=== PATIENT | male | born 1975 | race Caucasian/White ===

== ENCOUNTER 2019-04-17 21:03 | Inpatient (IN) | payer MEDICAID ==
[~2019-04-17] VITALS: Ht 165.1 cm; Wt 96.6 kg
[2019-04-17 21:07] VITALS: BP_SYST 108
[2019-04-17 21:57] LABS: BASOPHILS # (AUTO) 0.1 K/uL (0.0-0.2); BASOPHILS % (AUTO) 0.6 % (0.0-2.0); EOSINOPHILS # (AUTO) 0.4 K/uL (0.0-0.4); EOSINOPHILS % (AUTO) 2.9 % (0.0-4.0); HEMATOCRIT 31.7 % (36-54); HEMOGLOBIN 10.7 g/dL (14.0-18.0); LYMPHOCYTES # (AUTO) 1.8 K/uL (1.0-5.5); LYMPHOCYTES % (AUTO) 14.7 % (20.5-51.5); MEAN CORPUSCULAR HEMOGLOBIN 36 pg (27-31); MEAN CORPUSCULAR HGB CONC 34 % (32-36); MEAN CORPUSCULAR VOLUME 107 fL (79.0-98.0); MONOCYTES # (AUTO) 1.4 K/uL (0.0-1.0); MONOCYTES % (AUTO) 11.1 % (1.7-9.3); NEUTROPHILS # (AUTO) 8.8 K/uL (1.8-7.7); NEUTROPHILS % (AUTO) 70.7 % (40.0-70.0); PLATELET COUNT (AUTO) 146 K/uL (130-430); RED BLOOD CELL COUNT(AUTO) 2.97 MIL/uL (4.2-6.2); RED CELL DISTRIBUTION WIDTH 14.2 % (9.0-15.0); WHITE BLOOD COUNT (AUTO) 12.4 K/uL (4.8-10.8)
[2019-04-17 22:01] LABS: CALCIUM 7.7 mg/dL (8.4-11.0); CREATININE 1.04 mg/dL (0.55-1.30); POTASSIUM 4.6 mmol/L (3.5-5.1)
[2019-04-17 22:07] LABS: ALBUMIN 0.8 g/dL (3.4-4.8); TOTAL BILIRUBIN 7.1 mg/dL (0.0-1.0)
--- NOTE | 2019-04-17 22:45 | NUR ---
Placed in room 3 . Placed on mop man, blood pressure machine and pulse oximeter. To gown for exam. Side rails up.
--- NOTE | 2019-04-17 22:47 | NUR ---
Pt was brought in with 20 gauge to left AC placed en route to ED by EMT's.
--- NOTE | 2019-04-17 22:47 | NUR ---
Pt was brought in by BLS from home c/o shortness of breath for the past two days. O2 saturation is upon ED arrival is 98%. Pt appears to be jaundice. Per pt, he has hx of paracentesis and liver cirrhosis. Abdomen appears to be distended and firm to touch. No other injuries/complaints per patient or noted.
--- NOTE | 2019-04-17 23:22 | NUR ---
Alonzo chowdhury in ED - 04/17/19 at 2322 by [email or web address] JACKSON Cabrera at bedside examining patient.
--- NOTE | 2019-04-17 23:28 | NUR ---
ER Dr. Cabrera at bedside examining patient.
--- NOTE | 2019-04-18 00:18 | NUR ---
Patient went to CT in stable condition.
[2019-04-18] MEDS ORDERED: RIFA550T5 PO (01:15)
[2019-04-18] MEDS ORDERED: FURO-150 PO (01:15)
[2019-04-18] MEDS ORDERED: MAGN64TA7 PO (01:15)
[2019-04-18] MEDS ORDERED: POTA10TA15 PO (01:15)
[2019-04-18] MEDS ORDERED: PROP10TA10 PO (01:15)
[2019-04-18] MEDS ORDERED: SPIR100T PO (01:15)
[2019-04-18] MEDS ORDERED: LACT10SO6 PO (01:15)
[2019-04-18] MEDS ORDERED: IOHEXOL 350 mgI/mL, 150 ML INFUS..BTL IV ONE (01:24)
--- NOTE | 2019-04-18 01:48 | NUR ---
Pt returned from CT in stable condition.
[2019-04-18] MEDS ORDERED: KETOROLAC TROMETHAMINE 30 MG VIAL IVP ONE (02:00)
--- NOTE | 2019-04-18 02:04 | NUR ---
Patient will be admitted to care of Dr. Hernandez. Admitted to Med Surg unit. Will go to room 118 A. Belongings list completed. Summary report printed. Report will be given at bedside.
--- NOTE | 2019-04-18 02:05 | NUR ---
[facility] IV present no sign or symptom of infiltration.
--- NOTE | 2019-04-18 02:11 | NUR ---
ADMISSION NOTE Received patient from ER via elif, received report from RENE SMITH. Patient admitted with diagnosis of LIVER CIRRHOSIS. Patient oriented to hospital routine, call light, toileting and safety-patient verbalized understanding.
[2019-04-18 02:19] VITALS: BP_SYST 98
[2019-04-18 02:46] VITALS: BP_SYST 96
--- NOTE | 2019-04-18 04:00 | NUR ---
RESTING Patient is resting at this time. No s/s of acute distress. Safety and fall precautions are in place. Bed is locked and in the lowest position with bed alarm on. Call light with patient. Will continue to monitor.
--- NOTE | 2019-04-18 04:48 | NUR ---
CONSULT Called Dr. Schneider's exchange for morning consult Dr. Todd application development consultant [phone] Spoke to Mine
--- NOTE | 2019-04-18 06:46 | NUR ---
CLOSING NOTE All needs were met throughout the shift. Patient is stable with no s/s of acute distress. Denies any dizziness, pain or discomfort at this time. Safety measures maintained. Call light with patient. Will endorse care to oncoming day shift nurse.
[2019-04-18] MEDS ORDERED: PROPRANOLOL HCL 10 MG TABLET (INDERAL) PO SCH (07:00)
--- NOTE | 2019-04-18 07:35 | NUR ---
AM ROUNDS: BEDSIDE REPORT GIVEN BY NIGHT NURSE MELI. DENIES ANY PAIN. NO ACUTE DISTRESS. CALL LIGHT WITH IN REACH. BED LOCKED AT LOWEST POSITION. BED ALARM OFF PER PATIENT REQUEST.
[2019-04-18 08:15] LABS: ALANINE AMINOTRANSFERASE 30 U/L (12-78); ALBUMIN 0.7 g/dL (3.4-4.8); ASPARTATE AMINOTRANSFERASE 49 U/L (10-37); CHLORIDE 101 mmol/L (98-107); CREATININE 1.07 mg/dL (0.55-1.30); GLUCOSE 94 mg/dL (70-99); POTASSIUM 5.1 mmol/L (3.5-5.1); SODIUM SERUM 131 mmol/L (136-145); TOTAL BILIRUBIN 6.3 mg/dL (0.0-1.0); UREA NITROGEN, BLOOD 11 mg/dL (8-21)
[2019-04-18 08:17] LABS: ANION GAP < 3 (5-15); GFR AFRICAN AMERICAN 97 mL/min (>90)
[2019-04-18 08:38] VITALS: BP_SYST 91
[2019-04-18] MEDS: RIFAXIMIN 550 MG TABLET PO SCH ×2 (08:51→20:48)
[2019-04-18] MEDS: LACTULOSE 20 GM/30 ML UDC PO SCH ×3 (08:52→20:48)
[2019-04-18] MEDS: FUROSEMIDE 40 MG/4 ML VIAL IVP SCH (08:55)
[2019-04-18] MEDS: SPIRONOLACTONE 50 MG TABLET (ALDACTONE) PO SCH (09:00)
[2019-04-18] MEDS ORDERED: FUROSEMIDE 20 MG/2 ML VIAL IVP SCH (09:00)
[2019-04-18] MEDS ORDERED: FUROSEMIDE 20 MG TABLET PO SCH (09:00)
[2019-04-18 09:11] LABS: INR 1.9 (0.80-1.20); PROTHROMBIN TIME 18.9 SECS (9.5-12.5)
[2019-04-18] MEDS: MAGNESIUM CHLORIDE 64 MG TABLET.DR PO SCH (09:14)
--- NOTE | 2019-04-18 11:30 | NUR ---
RN ROUNDS: PATIENT STATED,NO APPETITE ,TOOK JUICE AND FRUIT CUP ONLY. STABLE.
--- NOTE | 2019-04-18 15:00 | NUR ---
PARACENTESIS: RADIOLOGIST CAME AND DID PARACENTESIS,OBTAINED 10CC OF YELLOW COLOR ,ASPIRATED FROM THE ABDOMEN.NO DISTRESS.
[2019-04-18 15:09] VITALS: BP_SYST 97
[2019-04-18] MEDS: cefTRIAXone 1 GM in D5W 50 ML IV SCH (16:09)
--- NOTE | 2019-04-18 17:39 | NUR ---
RN ROUNDS: AT THE BEDSIDE. NO DISTRESS.
--- NOTE | 2019-04-18 18:48 | NUR ---
END OF SHIT: AT THE BEDSIDE. NO ACUTE DISTRESS. CALL LIGHT WITH IN REACH. BED LOCKED AT LOWEST POSITION. CONDITION GUARDED.
--- NOTE | 2019-04-18 19:30 | NUR ---
Opening note Late entry d/t patient care. Patient is AOx4, no s/sx of distress, IV is SL to LAC. Bed is locked to lowest position, side rails up 2x, call light w/in reach.
[2019-04-18 20:00] VITALS: BP_SYST 111
[2019-04-18] MEDS: KETOROLAC TROMETHAMINE 15 MG VIAL IVP PRN (20:48)
--- NOTE | 2019-04-18 20:56 | NUR ---
Due medication / Pain medication Patient reporting pain to right abdomen/flank and medicated with Toradol as ordered. Due medications given and educated on side effects, he verbalized understanding. Will monitor.
[2019-04-18 22:24] LABS: APPEARANCE,SPUN,BODY FLUID CLEAR (CLEAR); BF APPEARANCE UNSPUN CLEAR (CLEAR); BODY FLUID COLOR YELLOW (LT YELLOW); BODY FLUID SOURCE/ TYPE ABDOMINAL; BODY FLUID TOTAL VOLUME 9 mL; MONOCYTES,BODY FLUID 98 %; NEUTROPHIL, BODY FLUID 2 %; RBC, BODY FLUID 220 /uL; SOURCE/TYPE ,BODY FLUID ABDOMINAL; WBC, BODY FLUID 31 /uL
--- NOTE | 2019-04-19 02:10 | NUR ---
OOB Patent is awake, and up for use of restroom. Had a bowel movement. Returned to bed, no further needs.
[2019-04-19 02:22] VITALS: BP_SYST 101
--- NOTE | 2019-04-19 04:10 | NUR ---
Rounds Patient is sleeping on left side down, non-labored breathing. Safety precautions in place and call light w/in reach. Will monitor.
--- NOTE | 2019-04-19 05:56 | NUR ---
Identity Management Developer Identity Management Developer in for blood draw. Patient requested water, He has no further needs.
[2019-04-19 06:04] LABS: CREATININE 1.03 mg/dL (0.55-1.30); POTASSIUM 4.6 mmol/L (3.5-5.1)
[2019-04-19 07:12] LABS: BASOPHILS # (AUTO) 0.1 K/uL (0.0-0.2); BASOPHILS % (AUTO) 0.4 % (0.0-2.0); EOSINOPHILS # (AUTO) 0.4 K/uL (0.0-0.4); EOSINOPHILS % (AUTO) 2.5 % (0.0-4.0); HEMATOCRIT 28.4 % (36-54); HEMOGLOBIN 9.6 g/dL (14.0-18.0); LYMPHOCYTES % (AUTO) 14.2 % (20.5-51.5); MEAN CORPUSCULAR HEMOGLOBIN 36 pg (27-31); MEAN CORPUSCULAR HGB CONC 34 % (32-36); MEAN CORPUSCULAR VOLUME 107 fL (79.0-98.0); MONOCYTES # (AUTO) 1.6 K/uL (0.0-1.0); NEUTROPHILS # (AUTO) 10.3 K/uL (1.8-7.7); NEUTROPHILS % (AUTO) 71.9 % (40.0-70.0); RED BLOOD CELL COUNT(AUTO) 2.66 MIL/uL (4.2-6.2); WHITE BLOOD COUNT (AUTO) 14.4 K/uL (4.8-10.8)
--- NOTE | 2019-04-19 07:20 | NUR ---
Closing note Patient is resting, no s/sx of distress, IV is SL to LAC. Needs met throughout shift, endorse care.
--- NOTE | 2019-04-19 07:27 | NUR ---
AM ROUNDS: RECEIVED REPORT FROM NIGHT NURSE SALVADOR.PATIENT RESTING. CALL LIGHT WITH IN REACH. BED LOCKED AT LOWEST POSITION. NOT IN DISTRESS.
[2019-04-19 08:34] LABS: PLATELET COUNT (AUTO) 129 K/uL (130-430)
[2019-04-19 08:46] VITALS: BP_SYST 112
[2019-04-19] MEDS: SPIRONOLACTONE 50 MG TABLET (ALDACTONE) PO SCH (08:48)
[2019-04-19] MEDS: RIFAXIMIN 550 MG TABLET PO SCH ×2 (08:48→22:18)
[2019-04-19] MEDS: MAGNESIUM CHLORIDE 64 MG TABLET.DR PO SCH (08:49)
[2019-04-19] MEDS: FUROSEMIDE 40 MG/4 ML VIAL IVP SCH (08:49)
[2019-04-19] MEDS: LACTULOSE 20 GM/30 ML UDC PO SCH ×3 (08:49→22:19)
--- NOTE | 2019-04-19 10:00 | NUR ---
RN ROUNDS: RESTING. NOT IN ANY RESPIRATORY DISTRESS.
[2019-04-19 12:00] VITALS: BP_SYST 124
--- NOTE | 2019-04-19 12:22 | NUR ---
LUNCH: SERVED LUNCH. NO NEEDS THIS TIME.
--- NOTE | 2019-04-19 14:30 | NUR ---
RN ROUNDS: FAST ASLEEP DURING ROUNDS. STABLE.
--- NOTE | 2019-04-19 15:00 | NUR ---
IV ANTIBIOTICS: DUE IV ANTIBIOTICS GIVEN ORDERED. NO PROBLEM.
[2019-04-19] MEDS: cefTRIAXone 1 GM in D5W 50 ML IV SCH (15:16)
[2019-04-19 16:04] VITALS: BP_SYST 137
--- NOTE | 2019-04-19 17:00 | NUR ---
RN ROUNDS: NO ACUTE DISTRESS. CONTINUE TO MONITOR.
--- NOTE | 2019-04-19 18:37 | NUR ---
CLOSING NOTES: PATIENT WAS TRANSFERRED TO ROOM 122-B. NO ACUTE DISTRESS. CALL LIGHT WITH IN REACH. BED LOCKED AT LOWEST POSITION. CONDITION GUARDED.
--- NOTE | 2019-04-19 19:32 | NUR ---
Opening Note Patient is AOx4, awake, resting in bed, no s/sx of distress, IV is SL to LAC. VSS. Presently pain is tolerable and will hold on pain medication. Bed is locked to lowest position, side rails up 2x, call light w/in reach. Updated board and reviewed plan of care.
[2019-04-19 20:00] VITALS: BP_SYST 138
[2019-04-19] MEDS: KETOROLAC TROMETHAMINE 15 MG VIAL IVP PRN (22:19)
--- NOTE | 2019-04-19 22:20 | NUR ---
Medication Patient reporting pain to right abdomen/flank and medicated with Toradol as ordered. Due medications given and educated on side effects, he verbalized understanding. Will monitor.
--- NOTE | 2019-04-20 00:15 | NUR ---
Rounds Patient is awake. Presently denies pain, he states the mediation works good, Vital signs taken and stable, B/P 127/64, HR 112. Removed food items from tray, updated board and placed NPO cone on table; patient will be NPO for U/S of abdomen in am.
[2019-04-20 00:32] VITALS: BP_SYST 103
--- NOTE | 2019-04-20 02:30 | NUR ---
Rounds Patient is sleeping, non-labored breathing noted, no sign of distress. Call light w/in reach.
--- NOTE | 2019-04-20 04:35 | NUR ---
Rounds Patient is resting w/eyes closed. Symmetrical rise and fall of chest, non-labored breathing. Will monitor.
--- NOTE | 2019-04-20 06:49 | NUR ---
Closing note Patient is resting, no s/sx of distress, IV is SL to LAC. Presently denies pain. Needs met throughout shift, will endorse care to oncoming nurse.
[2019-04-20 07:56] VITALS: BP_SYST 109
--- NOTE | 2019-04-20 08:00 | NUR ---
Opening Note Patient is AOx4, awake, resting in bed, no s/sx of distress, SL on LAC is patent and intact. c/o of 2/10 pain, it is tolerable. Bed is locked to lowest position, side rails up 2x, call light w/in reach. Updated board and reviewed plan of care. Encouraged to call for assist, pain med and any concerns. will cont to monitor.
[2019-04-20] MEDS: RIFAXIMIN 550 MG TABLET PO SCH (09:07)
[2019-04-20] MEDS: SPIRONOLACTONE 50 MG TABLET (ALDACTONE) PO SCH (09:07)
[2019-04-20] MEDS: LACTULOSE 20 GM/30 ML UDC PO SCH ×2 (09:08→14:08)
[2019-04-20] MEDS: MAGNESIUM CHLORIDE 64 MG TABLET.DR PO SCH (09:08)
[2019-04-20] MEDS: FUROSEMIDE 40 MG/4 ML VIAL IVP SCH (09:09)
--- NOTE | 2019-04-20 09:44 | NUR ---
Received call from Marisol , Liver campaign coordinator of [facility], . stated that pt's called her this am. wanted to get update about pt.
--- NOTE | 2019-04-20 10:20 | NUR ---
pt resting in bed, awake, no sob, no pain. call light in reach. will cont to monitor.
--- NOTE | 2019-04-20 11:59 | NUR ---
pt in bed, eye closed. appears sleeping. chest rise noted, breathing even and unlabored. call light in reach. will cont to monitor.
[2019-04-20 12:24] VITALS: BP_SYST 100
[2019-04-20] MEDS: cefTRIAXone 1 GM in D5W 50 ML IV SCH (14:08)
--- NOTE | 2019-04-20 15:13 | NUR ---
dr stanford here and seen patient.
--- NOTE | 2019-04-20 15:14 | NUR ---
paged dr ramos per dr stanford to check if okay to dc.
--- NOTE | 2019-04-20 15:50 | NUR ---
DC PLANNING: RECEIVED A CALL FROM CHARLOTTE @ [facility] LIVER TRANSPLANT @ AND WOULD LIKE TO KNOW IF PATIENT NEEDS TO BE TRANSFERRED. CM SPOKE WITH DR. HARDING IF PATIENT NEEDS TO BE TRANSFERRED TO [facility]. PER DR. HARDING, NO NEED TO TRANSFER. WILL BE POSSIBLY DISCHARGING PATIENT HOME.
[2019-04-20 16:27] VITALS: BP_SYST 104
[2019-04-20 18:03] VITALS: BP_SYST 104
--- NOTE | 2019-04-20 19:25 | NUR ---
D/C Patient Patient given medication reconciliation form and D/C instructions. Exit Care provided. Patient verbalized understanding. MD discussed with patient the results and treatment provided. Ambulatory with steady gait for discharge to home.Pt is on stable condition. Patient in stable condition, ID band removed. IV catheter removed, intact and dressing applied, no active bleeding. No Rx given. Patient instructed to take all homeications and follow up care with PMD and Steam Service Inspector in 1 week. Patient educated on pain management. All belongings sent with patient.
== END 2019-04-20 19:30 | disposition home or self-care (01) | DRG 280 ==
LOC: SED 21:03 → SMU 04-18 01:08
PROVIDERS: ADMIT Family Medicine; ATTEND Family Medicine
PROC: 0W9G3ZZ Drainage of Peritoneal Cavity, Percutaneous Approach (ICD-10-PCS; principal; 2019-04-19)
DX: K70.31 Alcoholic cirrhosis of liver with ascites (principal); J18.1 Lobar pneumonia, unspecified organism; J90 Pleural effusion, not elsewhere classified; D64.9 Anemia, unspecified; Z79.899 Other long term (current) drug therapy
CPT/HCPCS: 36415; 36600; 49083; 71045; 71275; 76700-TC; 80048; 80053; 82042; 82140-TC; 82803-TC; 82947-TC; 83735-TC; 84157-TC; 84484; 85025; 85379; 85610-TC; 87070-TC; 89051-TC; 89060-TC; 93005; 96374; 99285; J0696; J1885; J1940; J7060; Q9967